=== PATIENT | female | born 1960 | race Caucasian/White ===

== ENCOUNTER 2017-04-08 14:29 | Observation (INO) ==
[2017-04-08 15:46] LABS: Basophils # 0.1 K/mcL (0.0-0.2); Basophils % 0.5 %; Eosinophils # 0.2 K/mcL (0.0-0.6); Eosinophils % 1.9 %; Hematocrit 39.1 % (35.3-44.9); Hemoglobin 12.9 g/dL (11.5-15.4); Immature Granulocytes % 0.2 % (0-4); Lymphocytes # 3.6 K/mcL (0.6-4.6); Lymphocytes % 39.6 %; Mean Corpuscular Hemoglobin 30.8 pg (28.0-33.3); Mean Corpuscular Volume 93.3 fL (83.0-100.0); Mean Platelet Volume 9.2 fL (9.4-12.4); Monocytes # 0.6 K/mcL (0.0-1.3); Neutrophils # 4.7 K/mcL (1.6-8.9); Platelet Count 358 K/mcL (140-400); Red Blood Count 4.19 M/mcL (3.82-4.97); Red Cell Distribution Width 14.6 % (11.5-14.5); Segmented Neutrophils % 51.8 %
[2017-04-08 15:58] LABS: BUN/Creatinine Ratio 7 (6-26); Carbon Dioxide 27 mEq/L (19-29); Chloride 108 mEq/L (98-109); Glucose 106 mg/dL (70-99); Potassium 3.8 mEq/L (3.5-4.5); Sodium 143 mEq/L (136-145); eGFR For African Americans > 60 (> 60); eGFR For Non-African Americans > 60 (> 60)
[2017-04-08 15:59] LABS: Osmolality,Calculated 294 (280-300)
--- NOTE | 2017-04-08 16:04 | Emergency Department Note ---
Disposition Clinical Impression: TIA (transient ischemic attack) Disposition: Admitted As Inpatient Condition: Good General Adult HPI - General Chief complaint: ED Neuro Symptoms/Deficit Stated complaint: I think I had a TIA Thursday Time Seen by Provider: 04/08/17 14:39 Source: patient Limitations: no limitations Nursing Notes Reviewed: Yes Vital Signs Reviewed: Yes - History of Present Illness Pain Scale: 0 - Related Data Home Medications Medication Instructions Recorded Confirmed Cyclobenzaprine [Flexeril] 10 mg PO TID PRN 07/23/16 04/08/17 EPINEPHrine [Epipen] 0.3 mg IM AD PRN 07/23/16 04/08/17 Hydrocodone/Acetaminophen [Xodol 1 each PO DAILY PRN 07/23/16 04/08/17 5-300 Tablet] Loratadine [Claritin] 10 mg PO DAILY 07/23/16 04/08/17 Milnacipran HCl [Savella] 50 mg PO BID 07/23/16 04/08/17 Omeprazole [PriLOSEC] 20 mg PO BIDAC 07/23/16 04/08/17 Promethazine [Phenergan] 25 mg PO Q8HR PRN 07/23/16 04/08/17 Cholecalciferol (D-3) [Vitamin D] 5,000 unit PO DAILY 04/08/17 04/08/17 Metoprolol XL (24 HR) Succ [Toprol 25 mg PO DAILY 04/08/17 04/08/17 XL] Vitamin B Complex 1 each PO DAILY 04/08/17 04/08/17 Previous Rx's Medication Instructions Recorded Aspirin Enteric Coated [Aspirin EC] 81 mg PO DAILY #30 tablet. 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 - Social History Smoking Status: Current every day smoker Alcohol use: Reports: rarely Drug use: Reports: marijuana Physical Exam - General Limitations: no limitations General appearance: alert, in no apparent distress Course Vital Signs Temperature 98.3 F 04/08/17 14:31 Pulse Rate 94 04/08/17 14:31 Respiratory Rate 16 04/08/17 14:31 Blood Pressure 147/82 04/08/17 14:31 O2 Sat by Pulse Oximetry 99 04/08/17 14:31 Temperature 98.3 F 04/08/17 14:31 Pulse Rate 86 04/08/17 15:05 Respiratory Rate 14 04/08/17 15:05 Blood Pressure 121/88 04/08/17 15:05 O2 Sat by Pulse Oximetry 98 04/08/17 15:05 Oxygen Delivery Oxygen Delivery Room Air Medical Decision Making - MDM Narrative Medical decision making narrative: I examined this patient and my medical decision-making was reviewed with the CREW BOSS/PA/Advanced Practice Nurse/Resident Physician. I agree with the documented findings, disposition and treatment plan as described except to the extent set forth below. Patient arrives today to be seen in the emergency department on Thursday she had an episode about 4 hours where she had weakness and had difficulty with speech. She said sending him couple years ago was not medically evaluated. She is completely asymptomatic this time with no neuro deficits. Remainder workup on her and then talk with neurology and consider admission. She is in agreement with this plan. Patient seen today by myself and Dr. Bashir, agree with his evaluation and management plan, I supervised the care of the patient stay. Head CT 04/08/17 14:40 IMPRESSION: 1. No acute intracranial abnormality. D/ / Will Freeman MD / Will Freeman MD Interpreting Provider: Will Freeman MD 1630 hrs.: Patient's labs are back. She is doing okay. We are waiting a urinalysis or a talk about admission to the hospital. She is in agreement with plan 1820 hrs.: Patient admitted to the hospitalist. She is stable and agreement with the plan. - Lab Data Result diagrams: 04/08/17 15:40 04/08/17 15:40 Lab Results 04/08/17 04/08/17 04/08/17 Range/Units 15:40 15:40 15:40 WBC 9.1 (4.3-11.1) K/mcL RBC 4.19 (3.82-4.97) M/mcL Hgb 12.9 (11.5-15.4) g/dL Hct 39.1 (35.3-44.9) % MCV 93.3 (83.0-100.0) fL MCH 30.8 (28.0-33.3) pg MCHC 33.0 (31.6-35.5) g/dL RDW 14.6 H (11.5-14.5) % Plt Count 358 (140-400) K/mcL MPV 9.2 L (9.4-12.4) fL Immature Gran % 0.2 (0-4) % Seg Neutrophils % 51.8 % Lymphocytes % 39.6 % Monocytes % 6.0 % Eosinophils % 1.9 % Basophils % 0.5 % Neutrophils # 4.7 (1.6-8.9) K/mcL Lymphocytes # 3.6 (0.6-4.6) K/mcL Monocytes # 0.6 (0.0-1.3) K/mcL Eosinophils # 0.2 (0.0-0.6) K/mcL Basophils # 0.1 (0.0-0.2) K/mcL Sodium 143 (136-145) mEq/L Potassium 3.8 (3.5-4.5) mEq/L Chloride 108 (98-109) mEq/L Carbon Dioxide 27 (19-29) mEq/L BUN 5 L (7-20) mg/dL Creatinine 0.71 (0.57-1.11) mg/dL Est GFR ( Amer) > 60 (> 60) Est GFR (Non-Af Amer) > 60 (> 60) BUN/Creatinine Ratio 7 (6-26) Glucose 106 H (70-99) mg/dL Calculated Osmolality 294 (280-300) Calcium 9.0 (8.6-10.8) mg/dL Troponin I 0.01 (0-0.03) ng/mL
[2017-04-08 16:05] LABS: Blood Urea Nitrogen 5 mg/dL (7-20)
[2017-04-08] MEDS ORDERED: Aspirin 81 MG TAB.CHEW PO ONE (16:34)
--- NOTE | 2017-04-08 16:36 | Emergency Department Note ---
Disposition Clinical Impression: TIA (transient ischemic attack) Qualifiers: Transient cerebral ischemia type: unspecified Qualified Code(s): G45.9 - Transient cerebral ischemic attack, unspecified Disposition: Admitted As Inpatient Condition: Good Referrals: NO,PCP [Non-Partnered Physician] - Forms: ED Satisfaction Letter Neuro HPI - General Chief Complaint: ED Neuro Symptoms/Deficit Stated Complaint: I think I had a TIA Thursday Time Seen by Provider: 04/08/17 14:39 Source: patient Limitations: no limitations Nursing Notes Reviewed: Yes Vital Signs Reviewed: Yes - History of Present Illness HPI Narrative: Patient here for evaluation of garbled speech and lightheadedness. Symptoms have been 2 days ago and lasted approximately 4 minutes but since resolved. After further investigation of her symptoms she became worried about the prospect of possible TIA. 2 years ago the patient had an episode of abnormal vision that she did not seek workup for that she believed was related to TIA. However she did not seek professional medical advice this time. Patient is currently asymptomatic and has been since her initial incident. Family was present for the initial symptoms and verify their overall concern. - Related Data Home Medications: Home Medications Medication Instructions Recorded Confirmed Cyclobenzaprine [Flexeril] 10 mg PO TID PRN 07/23/16 07/23/16 EPINEPHrine [Epipen] 0.3 mg IM AD PRN 07/23/16 07/23/16 Fish Oil/Dha/Epa [Fish Oil 1,200 1 each PO DAILY 07/23/16 07/23/16 mg Fish Oil] Hydrocodone/Acetaminophen [Xodol 1 each PO DAILY PRN 07/23/16 07/23/16 5-300 Tablet] Loratadine [Claritin] 10 mg PO DAILY 07/23/16 07/23/16 Milnacipran HCl [Savella] 50 mg PO BID 07/23/16 07/23/16 Multivit/Iron/FA/K/Herb No.244 1 each PO DAILY 07/23/16 07/23/16 [[employer] Mv Tablet] Omeprazole [PriLOSEC] 20 mg PO BIDAC 07/23/16 07/23/16 Promethazine [Phenergan] 25 mg PO Q8HR PRN 07/23/16 07/23/16 Propranolol LA (24 HR) [Inderal LA] 60 mg PO DAILY 07/23/16 07/23/16 Previous Rx's Medication Instructions Recorded Aspirin Enteric Coated [Aspirin EC] 81 mg PO DAILY #30 tablet. 07/25/16 Atorvastatin [Lipitor] 40 mg PO HS #30 tablet 07/25/16 Metoprolol [Lopressor] 12.5 mg PO BID #30 tablet 07/25/16 Promethazine [Phenergan] 25 mg PO Q8HR PRN #30 tablet 07/25/16 Allergies/Adverse Reactions: Allergies Allergy/AdvReac Type Severity Reaction Status Date / Time codeine Allergy See Verified 04/08/17 14:31 Comments Review of Systems: CONSTITUTIONAL: No weight loss, fever, chills, weakness or fatigue. HEENT: Eyes: No visual changes. Ears, Nose, Throat: No hearing loss, difficulty talking or unable to swallow. SKIN: No rash or itching. CARDIOVASCULAR: No chest pain, chest pressure or chest discomfort. No palpitations or edema. RESPIRATORY: No shortness of breath, cough or sputum. GASTROINTESTINAL: No anorexia, nausea, vomiting or diarrhea. No abdominal pain or blood. GENITOURINARY: No burning on urination or hematuria. NEUROLOGICAL: No current headache, dizziness, syncope, paralysis, ataxia, numbness or tingling in the extremities. No change in bowel or bladder control. MUSCULOSKELETAL: No muscle pain, back pain, joint pain or stiffness. 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 - Social History Smoking Status: Current every day smoker Alcohol use: Reports: rarely Drug use: Reports: marijuana Physical Exam General appearance: NAD, conversant Eyes: anicteric sclerae, moist conjunctivae; PERRL HENT: Atraumatic; oropharynx clear with moist mucous membranes and no mucosal ulcerations Neck: Normal inspection; Trachea midline; FROM, supple Lungs: CTA, with normal respiratory effort and no intercostal retractions CV: RRR, no MRGs Abdomen: Soft, non-tender; no rebound or gaurding Extremities: No peripheral edema or extremity lymphadenopathy Skin: Normal temperature; no rash, ulcers or lesions Psych: Appropriate mood and affect Neuro: alert and oriented to person, place and time - General Limitations: no limitations General appearance: alert, in no apparent distress - Expanded Neurological Exam Speech: Present: fluid speech Cranial nerves: EOM function (II, III, IV, ): Normal, facial sensation (V): Normal, facial palsy (VII): Normal, gag reflex (IX): Normal, spinal accessory function (XI): Normal, tongue deviation (XII): Normal Cerebellar function: finger to nose: Normal, heel to crockett: Normal Motor strength - LUE: 5/5 Motor strength - RUE: 5/5 Motor strength - LLE: 5/5 Motor strength - RLE: 5/5 Sensory exam upper extremity: light touch: Normal Sensory exam lower extremity: light touch: Normal Course - Reevaluation(s) Reevaluation #1: Patient's workup is negative at this time. Overall symptoms concerning for TIA versus possible MS or other. Recommend admission at this time. - Consultations Consultation #1: Discussed with hospitalist, Saida Salazar. Patient accepted for admission. Vital Signs Temperature 98.3 F 04/08/17 14:31 Pulse Rate 94 04/08/17 14:31 Respiratory Rate 16 04/08/17 14:31 Blood Pressure 147/82 04/08/17 14:31 O2 Sat by Pulse Oximetry 99 04/08/17 14:31 Temperature 98.3 F 04/08/17 14:31 Pulse Rate 86 04/08/17 15:05 Respiratory Rate 14 04/08/17 15:05 Blood Pressure 121/88 04/08/17 15:05 O2 Sat by Pulse Oximetry 98 04/08/17 15:05 Oxygen Delivery Oxygen Delivery Room Air Neuro Symptoms/Deficit - Medical Records Medical records reviewed: Yes I reviewed the patient's medical records. - Lab Data Lab results reviewed: Yes I reviewed the patient's lab results. Result diagrams: 04/08/17 15:40 04/08/17 15:40 Lab Results 04/08/17 04/08/17 04/08/17 Range/Units 15:40 15:40 15:40 WBC 9.1 (4.3-11.1) K/mcL RBC 4.19 (3.82-4.97) M/mcL Hgb 12.9 (11.5-15.4) g/dL Hct 39.1 (35.3-44.9) % MCV 93.3 (83.0-100.0) fL MCH 30.8 (28.0-33.3) pg MCHC 33.0 (31.6-35.5) g/dL RDW 14.6 H (11.5-14.5) % Plt Count 358 (140-400) K/mcL MPV 9.2 L (9.4-12.4) fL Immature Gran % 0.2 (0-4) % Seg Neutrophils % 51.8 % Lymphocytes % 39.6 % Monocytes % 6.0 % Eosinophils % 1.9 % Basophils % 0.5 % Neutrophils # 4.7 (1.6-8.9) K/mcL Lymphocytes # 3.6 (0.6-4.6) K/mcL Monocytes # 0.6 (0.0-1.3) K/mcL Eosinophils # 0.2 (0.0-0.6) K/mcL Basophils # 0.1 (0.0-0.2) K/mcL Sodium 143 (136-145) mEq/L Potassium 3.8 (3.5-4.5) mEq/L Chloride 108 (98-109) mEq/L Carbon Dioxide 27 (19-29) mEq/L BUN 5 L (7-20) mg/dL Creatinine 0.71 (0.57-1.11) mg/dL Est GFR ( Amer) > 60 (> 60) Est GFR (Non-Af Amer) > 60 (> 60) BUN/Creatinine Ratio 7 (6-26) Glucose 106 H (70-99) mg/dL Calculated Osmolality 294 (280-300) Calcium 9.0 (8.6-10.8) mg/dL Troponin I 0.01 (0-0.03) ng/mL - Radiology Data Radiology results reviewed: Yes I reviewed the patient's radiology results. - EKG Data EKG attestation: Yes I reviewed and interpreted this EKG. EKG results narrative: EKG shows sinus rhythm with ventricular rate of 74 bpm. IL interval 150. QRS 86. QTC 39. Patient has no significant ST elevations or depressions. Nonspecific T-wave changes. Unchanged from 02/14/17. TPA Checklist - LKW: 3-4.5 hrs Add. Contraindications Patient/family understanding: The patient/family members have been counseled and understood the risk, benefit , and alternatives of treatment.
[2017-04-08] MEDS ORDERED: Naloxone 0.4 MG/ML INJ IVP PRN (19:07)
--- NOTE | 2017-04-08 20:16 | Internal Med History&Physical ---
<Saida Dennis Celsa - Last Filed: 04/08/17 20:14> Date of Encounter: 04/08/17 Time of Encounter: 16:00 Assessment and Plan (1) Dysarthria Current visit: Yes Status: Acute Patient reports one episode of slurred speech 3 days prior to admission. Episode lasted approximately 2-3 minutes. Slurred speech resolved on its own. She is neurologically intact on exam no deficits apparent. We will defer permissive hypertension as symptoms occurred 3 days ago and are completely resolved now. Head CT negative. Check brain MRI, TSH, Hgb A1c, lipid panel. If MRI is negative then she can follow up outpatient for echocardiogram and further workup. Continue home aspirin and statin. Consult neurology if needed (2) CAD (coronary artery disease) Current visit: Yes Status: Acute With history of CABG and stents. Asymptomatic, denies chest pain. Continue home aspirin and statin. Qualifiers: Coronary Disease-Associated Artery/Lesion type: bypass graft [place] vs. transplanted heart: [place] heart Associated angina: without angina Qualified Code(s): I25.810 - Atherosclerosis of coronary artery bypass graft(s) without angina pectoris (3) HTN (hypertension) Current visit: No Status: Chronic Prior history. BP controlled, continue home BP medications. Monitor BP and titrate PRN Qualifiers: Hypertension type: essential hypertension Qualified Code(s): I10 - Essential (primary) hypertension (4) Fibromyalgia Current visit: No Status: Chronic Per history. Symptoms controlled with home pain medication. (5) DVT prophylaxis Current visit: Yes Status: Acute Heparin Internal Medicine - H&P: HPI Chief complaint: slurred speech Admitted From: Home History of present illness: Ms. Colby is a 56 year old female with past medical history CAD, hypertension , fibromyalgia and hyperlipidemia who presented to [facility] on 04/08/2017 with complaints of slurred speech 3 days prior to admission. She was placed in observation status for CVA rule out. Information obtained from chart review and patient report. Per patient, she had one episode of slurred speech 3 days prior to admission, episode lasted approximately 2 minutes and resolved on its own. She was concerned she may have had a stroke so she came to the hospital. On my exam she has absolutely no complaints all symptoms have resolved she specifically denies headache no vision changes no numbness tingling the weakness in extremities no chest pain no shortness of breath Past Med Surg Social Fam HX - Past Medical History Medical history: arthritis, fibromyalgia, GERD, hypertension, migraine, TIA, other Psychiatric history: no psych history - Past Surgical History Surgical History: other - Social History Smoking Status: Current every day smoker Packs per day: 1 Smokeless Tobacco Status: No Alcohol use: rarely Drug use: marijuana - Family History Mother Hx Family Cardiac Disorders: Yes (HTN) Hx Family Cancer: Yes (skin) Hx Family Neurologic Disorders: Yes (several strokes) Brother Living Status: Hx Family Cardiac Disorders: Yes (HTN, heart transplant) Hx Family Endocrine Disorder: Yes (diabetes) Sister Hx Family Cardiac Disorders: Yes (HTN) Hx Family Endocrine Disorder: Yes (diabetes) Internal Medicine - H&P: Meds Cyclobenzaprine [Flexeril] 10 mg PO TID PRN 07/23/16 [History] EPINEPHrine [Epipen] 0.3 mg IM AD PRN 07/23/16 [History] Hydrocodone/Acetaminophen [Xodol 5-300 Tablet] 1 each PO DAILY PRN 07/23/16 [ History] Loratadine [Claritin] 10 mg PO DAILY 07/23/16 [History] Milnacipran HCl [Savella] 50 mg PO BID 07/23/16 [History] Omeprazole [PriLOSEC] 20 mg PO BIDAC 07/23/16 [History] Promethazine [Phenergan] 25 mg PO Q8HR PRN 07/23/16 [History] Aspirin Enteric Coated [Aspirin EC] 81 mg PO DAILY #30 tablet. 07/25/16 [Rx] Atorvastatin [Lipitor] 40 mg PO HS #30 tablet 07/25/16 [Rx] Cholecalciferol (D-3) [Vitamin D] 5,000 unit PO DAILY 04/08/17 [History] Metoprolol XL (24 HR) Succ [Toprol XL] 25 mg PO DAILY 04/08/17 [History] Vitamin B Complex 1 each PO DAILY 04/08/17 [History] Allergies codeine Allergy (Verified 04/08/17 14:31) See Comments nauseous, itching, rash All Systems PM: A 10-system review of systems was performed and is negative for pertinent findings except as documented above in the HPI. - Constitutional Constitutional: no chills, no fever(s), no night sweats - EENT Eyes: no change in vision, no discharge, no pain, no photophobia Ears: no ear discharge, no ear pain, no tinnitus Nose, mouth and throat: no dysphagia, no nasal discharge, no neck pain, no sore throat - Cardiovascular Cardiovascular ROS IM: no chest pain, no diaphoresis, no dyspnea, no lightheadedness, no palpitations, no syncope - Respiratory Respiratory: no cough, no dyspnea, no wheezing, no excessive phlegm production - Gastrointestinal Gastrointestinal: no abdominal pain, no diarrhea, no hematemesis, no hematochezia, no melena, no nausea, no vomiting - Genitourinary Genitourinary: no change in urinary stream, no dysuria, no flank pain, no hematuria - Musculoskeletal Musculoskeletal ROS IM: no numbness, no tingling - Integumentary Integumentary IM: no rash, no unusual bruising - Neurological Neurological ROS: no confusion, no convulsions, no focal weakness, no numbness, no tingling, no tremor(s) - Hematologic/Lymphatic Hematologic/Lymphatic: no easy bruising - Constitutional Vitals: Temp Pulse Resp BP Pulse Ox 97.6 F 75 16 137/82 94 04/08/17 19:47 04/08/17 19:47 04/08/17 19:47 04/08/17 19:47 04/08/17 19:47 General appearance: Present: A&O X 3, no acute distress - Head Head exam: Present: atraumatic, normocephalic - Eye Eye exam: Present: PERRL, conjuntiva pink, sclera anicteric Pupils: Present: PERRL - Neck Neck exam general surgery: Present: supple, trachea midline. Absent: lymphadenopathy - Respiratory Respiratory exam: Present: CTAB. Absent: accessory muscle use, rales, rhonchi, wheezes - Cardiovascular Cardiovascular exam: Present: RRR, +S1, +S2. Absent: diastolic murmur, gallop, rubs, systolic murmur - GI/Abdominal GI/Abdominal exam: Present: normal bowel sounds, soft, no peritoneal signs. Absent: distended, tenderness - Extremities Exam Extremities exam: Present: warm, radial pulses palpable and symetrical. Absent : calf tenderness, cyanotic, pedal edema - Neurological Exam Neurological exam: Present: CN II-XII intact, oriented X3, no focal deficits. Absent: pronater drift, facial droop, speech deficit - Skin Skin exam: Present: dry, intact Internal Med - H&P Results - Labs CBC & Chem 7: 04/08/17 15:40 04/08/17 15:40 <Nawaf Calixto - Last Filed: 04/09/17 05:39> Date of Encounter: 04/08/17 Internal Medicine - H&P: HPI History of present illness: Ms. Colby is a 56 year old female All Systems PM: A 10-system review of systems was performed and is negative for pertinent findings except as documented above in the HPI. - Constitutional Vitals: Temp Pulse Resp BP Pulse Ox 97.6 F 74 18 145/81 99 04/09/17 02:51 04/09/17 02:51 04/09/17 02:51 04/09/17 02:51 04/09/17 02:51 Internal Med - H&P Results - Labs CBC & Chem 7: 04/09/17 03:59 04/08/17 15:40 Labs: Short CBC 04/09/17 Range/Units 03:59 WBC 12.1 H (4.3-11.1) K/mcL Hgb 12.7 (11.5-15.4) g/dL Hct 38.2 (35.3-44.9) % Plt Count 368 (140-400) K/mcL Neutrophils # 5.8 (1.6-8.9) K/mcL - Attending Attestation I examined this patient and my medical decision-making was reviewed with the Advanced Practice Nurse. I agree with the documented findings, disposition and treatment plan as described except to the extent set forth below. Patient with a previous history of what seems to be a TIA in 2000 for which she was not seen at any facility, prior LA last year for which no stent was placed as well significant family history of strokes and LA's comes in with transient neuro deficit most likely from a TIA. She has claustrophobia so will need sedation for the MRI in AM, she also reports being sensitive to sedatives so care will need to be taken in administering any sedation for her MRI.
[2017-04-08] MEDS ORDERED: *HR* HYDROcodone/Acet 5/325 mg TABLET PO PRN (20:19)
[2017-04-08] MEDS ORDERED: *HR* LORazepam 2 MG/ML VIAL IVP ONE (23:09)
[2017-04-09 04:38] LABS: Basophils # 0.1 K/mcL (0.0-0.2); Basophils % 0.5 %; Eosinophils # 0.3 K/mcL (0.0-0.6); Eosinophils % 2.3 %; Hematocrit 38.2 % (35.3-44.9); Hemoglobin 12.7 g/dL (11.5-15.4); Immature Granulocytes % 0.2 % (0-4); Lymphocytes # 5.1 K/mcL (0.6-4.6); Lymphocytes % 42.6 %; Mean Corpuscular HGB Conc 33.2 g/dL (31.6-35.5); Mean Corpuscular Hemoglobin 30.6 pg (28.0-33.3); Mean Platelet Volume 9.4 fL (9.4-12.4); Monocytes # 0.8 K/mcL (0.0-1.3); Monocytes % 6.5 %; Neutrophils # 5.8 K/mcL (1.6-8.9); Platelet Count 368 K/mcL (140-400); Red Blood Count 4.15 M/mcL (3.82-4.97); Red Cell Distribution Width 14.6 % (11.5-14.5); Segmented Neutrophils % 47.9 %
[2017-04-09 04:52] LABS: Hemoglobin A1C 5.4 %
[2017-04-09 05:23] LABS: Thyroid Stimulating Hormone 0.968 mcIU/mL (0.350-4.840)
[2017-04-09 05:40] LABS: Alanine Aminotransferase 27 Units/L (0-55); Albumin 3.5 g/dL (3.5-5.0); Albumin/Globulin Ratio 1.1 (1.1-2.2); Alkaline Phosphatase 84 Units/L (38-126); Aspartate Amino Transferase 29 Units/L (5-34); BUN/Creatinine Ratio 9 (6-26); Bilirubin,Total 0.5 mg/dL (0.2-1.2); Blood Urea Nitrogen 6 mg/dL (7-20); Calcium 8.8 mg/dL (8.6-10.8); Carbon Dioxide 20 mEq/L (19-29); Chloride 111 mEq/L (98-109); Chol/HDL Ratio 3.1 (0-4.9); Cholesterol 121 mg/dL (< 200); Globulin 3.3 g/dL (2.4-3.5); Glucose 100 mg/dL (70-99); HDL Cholesterol 39 mg/dL (40-59); LDL Cholesterol,Calculated 36 mg/dL (0-99); Osmolality,Calculated 294 (280-300); Potassium 3.3 mEq/L (3.5-4.5); Sodium 143 mEq/L (136-145); Total Protein 6.8 g/dL (6.0-8.3); Triglycerides 231 mg/dL (< 150); eGFR For African Americans > 60 (> 60); eGFR For Non-African Americans > 60 (> 60)
[2017-04-09] MEDS ORDERED: *HR* Enoxaparin 40 MG/0.4 ML SYRINGE SQ SCH (06:00)
[2017-04-09] MEDS ORDERED: Aspirin Enteric Coated 81 MG Tablet PO SCH (09:00)
[2017-04-09] MEDS ORDERED: Loratadine 10 MG TABLET PO SCH (09:00)
[2017-04-09] MEDS ORDERED: Metoprolol XL (24 HR) Succ 25 MG TAB.ER.24H PO SCH (09:00)
[2017-04-09] MEDS ORDERED: Ipratropium/Albuterol Neb 3 ML IH ONE (09:09)
[2017-04-09] MEDS ORDERED: diazePAM 10 MG/2 ML SYRINGE IVP ONE ×2 (09:10→11:56)
[2017-04-09 10:53] VITALS: BP 129/78
--- NOTE | 2017-04-09 11:01 | Electrocardiograph Report ---
[address] [address] Test Date: 2017-04-08 Pat Name: Tess Colby Department: 105 Room: 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
[2017-04-09 12:07] LABS: Bilirubin,Urine Negative (Negative); Blood,Urine Negative (Negative); Clarity,Urine Cloudy (Clear); Color,Urine Yellow (Yellow); Glucose,Urine (UA) Normal (Normal); Ketones,Urine Negative (Negative); Leukocyte Esterase,Urine Negative (Negative); Nitrite,Urine Negative (Negative); PH,Urine 6.5 pH Units (5.0-8.0); Protein,Urine Negative (Neg-Trace); Specific Gravity,Urine 1.007 (1.010-1.025); Urobilinogen,Urine Normal (Normal)
[2017-04-09 12:10] LABS: Bacteria,Urine None Seen per hpf (None-Few); Hyaline Casts,Urine None Seen per lpf (None-Few); RBC,Urine 0-3 per hpf (0-3); Squamous Epithelial Cell,Urine Moderate per lpf (None-Few); WBC,Urine 0-3 per hpf (0-3)
--- NOTE | 2017-04-09 16:51 | Discharge Summary ---
Date of Encounter: 04/09/17 Time of Encounter: 09:05 - Discharge Diagnosis (1) Dysarthria Priority: Primary Status: Acute Comments: Patient states that she had one episode of slurred speech 3 days ago. Episode lasted approximately 2-3 minutes. It is resolved also. Speech is clear. She is neurologically intact. She has no deficits. Grasps are strong and equal bilaterally, as are foot press/pull and strength against resistance. Facial movements are symmetrical. Pupils equal round reactive to light. No deficits with cardinal nelson of gaze. Initial head CT was negative. Patient was to have an MRI. She was unable to tolerate the MRI. Second CAT scan was obtained. It too was negative for any acute infarct. Patient had an echocardiogram this morning. Normal systolic function with LVEF of 55-60%. No valvular dysfunction, pulmonary hypertension, and no shunting. Patient has been ambulating around the department. She has been tearful and crying her speech is remained clear. (2) HTN (hypertension) Priority: Secondary Status: Chronic Comments: Well-controlled. Continue home medication. Qualifiers: Hypertension type: essential hypertension Qualified Code(s): I10 - Essential (primary) hypertension (3) Fibromyalgia Priority: Secondary Status: Chronic Comments: Chronic. (4) CAD (coronary artery disease) Priority: Secondary Status: Acute Comments: Patient denies chest pain. Patient takes aspirin and statin. Continue at home. Qualifiers: Coronary Disease-Associated Artery/Lesion type: bypass graft [place] vs. transplanted heart: [place] heart Associated angina: without angina Qualified Code(s): I25.810 - Atherosclerosis of coronary artery bypass graft(s) without angina pectoris (5) DVT prophylaxis Priority: Secondary Status: Acute Comments: Heparin subcutaneous. - Discharge Medications Home Medications: Cyclobenzaprine [Flexeril] 10 mg PO TID PRN 07/23/16 [History] EPINEPHrine [Epipen] 0.3 mg IM AD PRN 07/23/16 [History] Hydrocodone/Acetaminophen [Xodol 5-300 Tablet] 1 each PO DAILY PRN 07/23/16 [ History] Loratadine [Claritin] 10 mg PO DAILY 07/23/16 [History] Milnacipran HCl [Savella] 50 mg PO BID 07/23/16 [History] Omeprazole [PriLOSEC] 20 mg PO BIDAC 07/23/16 [History] Promethazine [Phenergan] 25 mg PO Q8HR PRN 07/23/16 [History] Aspirin Enteric Coated [Aspirin EC] 81 mg PO DAILY #30 tablet. 07/25/16 [Rx] Atorvastatin [Lipitor] 40 mg PO HS #30 tablet 07/25/16 [Rx] Cholecalciferol (D-3) [Vitamin D] 5,000 unit PO DAILY 04/08/17 [History] Metoprolol XL (24 HR) Succ [Toprol Xl] 25 mg PO DAILY 04/08/17 [History] Vitamin B Complex 1 each PO DAILY 04/08/17 [History] Allergies/Adverse Reactions: Allergies codeine Allergy (Verified 04/08/17 14:31) See Comments nauseous, itching, rash Procedures/tests Complete & Pending: Procedures Performed prior 72 hours Category Date Time Status CT head/brain wo con [CT] Cat Scan 04/09/17 15:00 Completed EV echo with saline Routine Y 04/09/17 11:00 Completed Date of admission: 04/08/17 16:54 Primary care physician: Medina Stevens CNP Discharging clinician: Elysia Josue Anticipated date of discharge: 04/09/17 - Patient Status Disposition: Home, Self-Care Functional capacity at discharge: independent ambulation Overall status at discharge: patient is back to baseline - Discharge Instructions Follow Up With: Medina Stevens CNP [Primary Care Provider] - Additional Instructions: Resume your normal medications. Return to the emergency department as needed for any other new symptoms or concerns. Interval History: Patient is a 56-year-old female with past medical history coronary artery disease, hypertension, fibromyalgia, hyperlipidemia, coronary artery stents. She presented to the emergency room last night with history of slurred speech 3 days prior to admission. It resolved spontaneously within 2-3 minutes. Patient was admitted for evaluation of possible TIA. It is possible patient did have a TIA since symptoms resolved so abruptly. Initial CAT scan showed that patient had no acute injury or infarct. MRI was ordered. Patient was upset and crying with primary care nurse stating that she was unable to have a CAT scan and requested that I "knock her out". I explained to patient that this was not possible. We discussed medication options for sedation patient says the Ativan would not help her at all. She said that if I gave her half of the Valium she would pass out and would not wake up for several hours. As concerned due to her wheezing that I heard posteriorly in her small status that that would be too much medication. She and I both agreed on 2.5 mg IV. Patient was sleeping and relaxed, whenever someone enter the room patient would wake up and say that she was not relaxed. Immediately prior to going to MRI, I gave her another 2.5 mg IV. A little bit later received a call from MRI staff that patient had "freaked out" prior to even going into the MRI room. Once I got her commonest enter the room, she got up and ran away from the staff. Patient was very tearful. We decided to abandon the idea of an MRI and did a repeat CAT scan and . It too, was negative for any acute infarct or injury. Patient is neurologically intact. EOMI, PERRLA, facial movements are symmetrical, speech is clear, normal range of motion to neck. Patient follows commands and has no sensory disruption. Gait steady, she walked around the department multiple times due to anxiety. Labs have been stable as have vital signs. Patient is stable and appropriate for discharge. She has repeatedly told the nurse that she wants to go home. Discharge home with daughter. Hospital course: Ms. Colby is a 56 year old female - Time Spent with Patient Total time spent providing and/or coordinating discharge services: Greater than 30 minutes - Constitutional Vitals: Temp Pulse Resp BP Pulse Ox 98.0 F 68 18 129/78 100 04/09/17 10:50 04/09/17 10:50 04/09/17 11:05 04/09/17 10:50 04/09/17 11:05 General appearance: Present: A&O X 3, no acute distress, severe distress, answers questions appropriately - Head Head exam: Present: normal inspection - Eye Eye exam: Present: normal appearance, conjuntiva pink - ENT ENT exam: Present: mucous membranes moist, normal exam, normal external ear exam - Neck Neck exam general surgery: Present: normal inspection, supple. Absent: lymphadenopathy - Respiratory Respiratory exam: Present: CTAB, respiratory distress - Cardiovascular Cardiovascular exam: Present: RRR, +S1, +S2. Absent: bradycardia, clicks, diastolic murmur, distant heart sounds, gallop, JVD, systolic murmur - GI/Abdominal GI/Abdominal exam: Present: soft. Absent: hepatomegaly, mass, rigid, tenderness - Extremities Exam Extremities exam: Present: normal inspection, warm, radial pulses palpable and symetrical. Absent: pedal edema, tenderness - Neurological Exam Neurological exam: Present: alert, normal gait, oriented X3, no focal deficits, strengths equal and symetr throughout. Absent: motor sensory deficit, pronater drift, facial droop, speech deficit - Psychiatric Psychiatric exam: Present: anxious
== END 2017-04-09 17:11 | disposition home or self-care (01) ==
LOC: EMEROO 14:29 → 3BNU 14:29
PROVIDERS: ADMIT Registered Nurse; ATTEND Registered Nurse